=== PATIENT | female | born 1940 | race Caucasian/White ===

== ENCOUNTER 2018-07-07 14:31 | Outpatient (REF) | payer SELFPAY ==
[2018-07-07 14:50] VITALS: BP 109/71; PULSE 71; RESP 14; TEMP 36.6; O2SAT 95
--- NOTE | 2018-07-07 15:11 | DI.REPORT_ITS ---
SYMPTOM/DIAGNOSIS: SWALLOWED DENTAL DEVICE SOFT TISSUE LATERAL NECK: No foreign body is identified in the annemarie or hypopharynx or larynx or trachea. PA CHEST: The chest is unremarkable with no evidence of a foreign body. There is no infiltrate or pleural effusion. The heart is not enlarged. Unfolding and mild ectasia of the thoracic aorta is seen. ABDOMEN: There is no evidence of a radiopaque foreign body in the GI tract.
--- NOTE | 2018-07-07 15:52 | ED.GENADUL_ITS ---
Disposition Clinical Impression: Swallowed foreign body Disposition: HOME Condition: Good Instructions: Foreign Body Ingestion (ED) Additional Instructions: If you notice any worsening of your symptoms, or any new symptoms such as vomiting, diarrhea, fever, chills, shortness of breath, chest pain, numbness, weakness, or fainting , please return immediately to the emergency department for reevaluation. Please follow up with your primary care provider as soon as possible for reassessment and reevaluation. As always, it was a pleasure participating in your medical care today. Medical Decision Making - Medical Decision Making This is a 78-year-old female who presents after being told by the dentist office that she may have lost the tooth or a part of their dental apparatus in the back of her throat. They recommended she come into the ER for an x-ray. Patient denies any complaints and states that she did not feel anything in her throat or neck. She denies any nausea vomiting diarrhea difficulty breathing or cough. She denies any chest pain. X-rays do not reveal any signs of large metallic body or radiopaque body in the patient's neck. With no signs of airway compromise, coughing, or difficulty swallowing I feel she can be safely discharged home with close follow-up. We discussed red flags which returned patient and family understand. I have extensively reviewed the treatment plan and discharge instructions with the patient. I have addressed all patient concerns at this time. The patient was made aware of what symptoms to monitor for that would warrant a return to the emergency department. Discussed the plan with the patient, they demonstrate verbal understanding and agreement with our assessment and plan at this time. History of Present Illness - General Chief complaint: ThroatFB Stated complaint: XRAY NEEDED Time Seen by Provider: 07/07/18 15:11 - History of Present Illness Initial comments: [id number] female who presents for evaluation of swallowing foreign body. She states that she was having a dental procedure today, when the dental staff felt that they might have lost a piece of their instrument or her tooth while doing the cleaning procedure. The patient denies feeling anything in the back of her throat, having any difficulty swallowing, having any gagging, cough or shortness of breath. She denies any symptoms whatsoever and states that the only reason I am coming in is because they thought something might have happened. The patient has been able to eat and drink since then without any difficulty, shortness of breath, nausea, or vomiting. She has no complaints whatsoever at this time. She denies any previous throat or chest surgeries. She denies any blood thinner use. She denies any IV or illicit drug use. She denies any pertinent family history. - Related Data Donepezil [Aricept] 10 mg PO HS 07/07/18 Memantine HCl [Namenda Xr] 28 mg PO DAILY 07/07/18 Sertraline [Zoloft] 50 mg PO DAILY 07/07/18 Allergies Allergy/AdvReac Type Severity Reaction Status Date / Time amoxicillin Allergy Unverified 07/07/18 14:56 Review of Systems Other: 10 point review of systems was performed, pertinent positives and negatives are noted in the history of present illness. General Exam - Other Other exam information: 1.Const: Well-nourished, Well-developed, appearing stated age 2.Eyes: PERRL, no conjunctival injection, and symmetrical lids. 3.ENT: Atraumatic external nose and ears. Moist MM. Neck: Symmetric, trachea midline, No thyromegaly. 4.CVS: +S1/S2, No murmurs or gallops. Peripheral pulses 2+ and equal in all extremities. Brisk capillary refill in all extremities. 5.RESP: Unlabored respiratory effort. Clear to auscultation bilaterally. No wheezes rales or rhonchi 6.GI: Soft, Nontender/Nondistended, No hepatosplenomegaly. No guarding or rebound. 7.MSK: Normocephalic/Atraumatic, Extremities w/o deformity or ttp No cyanosis or clubbing, Normal movement of all extremities 8.Skin: Warm, Dry. No rashes or lesions. 9.Neuro: drosophere operator II-XII grossly intact. Sensation grossly intact, no focal neurologic deficits. 10.Psych: (AAO) x3. Appropriate mood and affect Course Vital Signs - 24 hr 07/07/18 14:50 Temperature 36.6 C Pulse 71 Respiratory 14 Rate Blood Pressure 109/71 Pulse Oximetry 95
== END 2018-07-07 16:02 | disposition home or self-care (01) ==
LOC: ER 14:31
PROVIDERS: Visit Provider Student in an Organized Health Care Education/Training Program
DX: T18.9XXA Foreign body of alimentary tract, part unspecified, initial encounter (principal); Y92.531 Health care provider office as the place of occurrence of the external cause

== ENCOUNTER 2022-07-20 12:37 | Emergency (ER) | payer MEDICARE, BC, SELFPAY ==
[2022-07-20] VITALS (31 sets, daily range): BP systolic 89–136; BP diastolic 54–93; PULSE 63–76; RESP 10–23; TEMP 36.5; O2SAT 90–98
--- NOTE | 2022-07-20 12:30 | RT.EKG_ITS ---
APPROVED REPORT Exam: Resting ECG Reason for Exam: SYNCOPY Patient Location: E HR:71 bpm ECG Measurements Heart Rate 71 AXIS OR 172 P 20 QRSd 81 QRS 15 QT 401 T 9 QTc 435 Conclusion Sinus rhythm...normal P axis, V-rate 60- 99. Sinus. No STEMI. I have reviewed and interpreted ECG and agree with software generated interpretation.
--- NOTE | 2022-07-20 12:41 | W.ED.GENAD ---
Discharge Plan Disposition Patient Disposition: HOME Condition: Stable Discharge Details Clinical Impression: Episode of generalized weakness, Anemia Primary Care Provider: [facility],Local ED Provider: Charlette Bynum Home Meds and New Rx's Prescriptions: Continued clindamycin HCl 150 mg capsule 150 mg PO DAILY omeprazole 40 mg capsule,delayed release(DR/EC) 40 mg PO DAILY calcium carbonate-vitamin D3 [Oyster Shell Calcium-Vit D3] 500 mg-10 mcg (400 unit) tablet donepezil 10 MG tablet 10 mg PO HS sertraline 50 MG tablet 50 mg PO DAILY memantine [Namenda XR] 28 MG capsule,sprinkle,ER 24hr 28 mg PO DAILY Discharge Instructions Instructions: Weakness (ED), Anemia (ED) Additional Instructions: Your mother's lab work today revealed that she is anemic (low hemoglobin). Drink plenty of fluids and get plenty of rest. As you declined a CT scan of the head, chest x-ray, urinalysis and additional work-up of anemia, this may lead to missed or incomplete diagnoses. Your mother's presentation today does not appear consistent with seizures but it is recommended to call your mother's neurologist Dr. Watts tomorrow for further recommendations regarding possible seizures and medication management. Follow-up with the primary care doctor in 1 week. Return to the emergency department with any worsening or new concerning symptoms. Referrals: Nithin Watts [ NON-[facility] STAFF PHYSICIAN] - Discharge Data Discharge Date/Time-TO BE ENTERED AT DEPARTURE: 07/20/22 16:30 Discharge Physician: Charlette Bynum Medical Decision Making 82-year-old female with a history of Alzheimer's dementia and seizure disorder currently not on any anticonvulsant medication presents for an episode of generalized weakness while ambulating this morning. Denies any seizure-like activity. Daughter reports that patient was supposed to be started on Keppra per Dr. Calderón last month but has not yet been started. She also states she should not be taking either Namenda or donepezil but has been on both of these medications. Patient appears well and in no acute distress. No obvious focal deficits on exam but unable to perform full neurological exam due to her dementia and full cooperation. She appears nontoxic and no meningeal signs. Her blood pressure is mildly soft with a systolic between 90s and 100s. Consider dehydration. Differential diagnosis also includes electrolyte abnormality, seizure, UTI, arrhythmia. History and presentation does not appear consistent with PE, meningitis or CVA but considering her age and history, will obtain screening labs, CT head, chest x-ray, urinalysis and give fluids and reassess. We will also contact Dr. Calderón service for medication recommendations. Labs reviewed. Hemoglobin 8.7. Unsure of her baseline hemoglobin. Nursing attempted to obtain urinary cath sample but bladder emptied twice and daughter is refusing any further attempts. A CT head and chest x-ray were ordered but daughter is declining these tests. Attempted to contact Dr. Watts or someone covering and there is no one available. Daughter is declining consult with [facility] neurology. Daughter would like to take patient home. Discussed that I do not see an indication for blood transfusion and history of presentation does not appear consistent with seizure or stroke. Daughter feels comfortable taking patient home and will follow up with Dr. Watts this week. Advised to follow up with the primary care doctor for re-evaluation. Usual and customary return precautions given prior to discharge. Lab Data Lab results reviewed: Yes I reviewed the patient's lab results. Labs: Laboratory Tests Range/Units 07/20/22 07/20/22 12:55 12:55 WBC (4.4-10.8) 10^3/uL 5.72 RBC (3.93-5.22) 10^6/uL 3.92 L Hgb (11.2-15.7) g/dL 8.7 L Hct (36.0-46.0) % 30.2 L MCV (80-95) fL 77 L MCH (27.0-33.0) pg 22.2 L MCHC (32.0-36.0) % 28.8 L RDW (11.7-14.6) % 15.0 H Plt Count (130-400) 10^3/uL 199 MPV (8.0-11.0) fL 10.9 Immature Gran % 0.3 Neutrophils % 69.8 Lymphocytes % 18.4 Monocytes % 7.7 Eosinophils % 3.5 Basophils % 0.3 Nucleated RBC % (0.0-0.3) % 0.0 Absolute Neutrophils (1.2-6.7) 10^3/uL 3.99 Absolute Lymphocytes (1.2-3.4) 10^3/uL 1.05 L Absolute Monocytes (0.1-0.8) 10^3/uL 0.44 Absolute Eosinophils (0.0-0.7) 10^3/uL 0.20 Absolute Basophils (0.0-0.2) 10^3/uL 0.02 RBC Morphology See Below Hypochromasia 2+ Poikilocytosis 1+ Sodium (136-145) mmol/L 143 Potassium (3.5-5.1) mmol/L 3.7 Chloride (98-107) mmol/L 109 H Carbon Dioxide (21.0-32.0) mmol/L 25.8 Anion Gap (3-11) mmol/L 8.2 BUN (7-18) mg/dL 27 H Creatinine (0.55-1.02) mg/dL 0.9 Estimated GFR/1.73 m2 (mL/min/1.73m2) >= 60.00 Glucose (74-106) mg/dL 114 H Calcium (8.5-10.1) mg/dL 8.4 L Magnesium (1.8-2.4) mg/dL 1.9 Total Bilirubin (0.2-1.0) mg/dL 0.5 AST (15-37) U/L 11 L ALT (14-59) U/L 17 Alkaline Phosphatase (46-116) U/L 50 Troponin I (<or=60) ng/L < 50 Total Protein (6.4-8.2) g/dL 6.6 Albumin (3.4-5.0) g/dL 3.2 L HPI General Mode of arrival: EMS. Date/Time Provider Initiated Documentation: 07/20/22 12:39. Limitations to Documentation: altered mental status. Information obtained by: patient and family. HPI Narrative: Patient is an 82-year-old female with a history of Alzheimer's dementia and seizures presents from home for a possible seizure versus syncopal episode. Family initially refused transfer on scene and then decided to come to the ED for evaluation. Daughter who was at bedside states that patient is staying with her for the weekend but resides in an assisted living facility due to her dementia. Daughter states that she was ambulating with patient who was using her walker when she suddenly stopped walking and appeared very weak. She states she did not pass out but appeared too weak to walk and they lowered her to the ground. She denies any injury or trauma or fall. Daughter states that patient was her normal self yesterday and earlier this morning but has not yet eaten or taken her medications yet this morning. Daughter states that patient was admitted to [facility] last month and diagnosed with new onset seizures. She states she was given Keppra at that time but was sensitive to 1000 mg and the dose was attempting to be adjusted. Daughter states that patient did not appear to have any seizure-like activity today. Daughter also states that Dr. Roselia Crocker evaluated patient last month for her seizures and it had been recommended at that time to stop either her Namenda or donepezil and she states she has been taking both. Related Data Home Medications Medication Instructions Recorded Confirmed donepezil 10 mg tablet 10 mg PO HS 07/07/18 07/20/22 memantine 28 mg capsule 28 mg PO DAILY 07/07/18 07/20/22 sprinkle,extended release 24hr (Namenda XR) sertraline 50 mg tablet 50 mg PO DAILY 07/07/18 07/20/22 calcium carbonate 500 mg-vitamin tab 07/20/22 07/20/22 D3 10 mcg (400 unit) tablet (Oyster Shell Calcium-Vitamin D3) clindamycin HCl 150 mg capsule 150 mg PO DAILY 07/20/22 07/20/22 omeprazole 40 mg capsule,delayed 40 mg PO DAILY 07/20/22 07/20/22 release Allergies Allergy/AdvReac Type Severity Reaction Status Date / Time amoxicillin Allergy Unverified 07/20/22 12:48 General Stated Complaint: Dizzy/Sync RONY: 3 Review of Systems All systems reviewed & are unremarkable except as noted in HPI and below Constitutional Constitutional: Denies chills, Denies excessive sweating, Denies fatigue, Denies fever(s), Denies weakness and Denies weight loss Eyes Eyes: Reports system reviewed and no additional complaints, except as documented and Denies blurry vision ENT Ears, Nose, Mouth, and Throat: Denies vertigo, Denies dizziness, Denies otalgia, Denies nasal congestion, Denies sore throat and Denies throat swelling Cardiovascular Cardiovascular: Denies chest pain, Denies syncope, Denies rapid heart rate and Denies dyspnea Respiratory Respiratory: Denies chest congestion, Denies cough, Denies pain on inspiration and Denies dyspnea Gastrointestinal Gastrointestinal: Denies abdominal pain, Denies diarrhea and Denies vomiting Genitourinary Genitourinary: Denies hematuria, Denies dysuria and Denies flank pain Musculoskeletal Musculoskeletal: Denies back pain and Denies joint swelling Integumentary/Breasts Skin/Breast: Denies lesions and Denies rash Neurologic Neurologic: Denies behavioral changes, Denies confusion, Denies vertigo, Denies dizziness, Denies syncope, Denies localized weakness and Denies weakness Psychiatric Psychiatric: Denies behavioral changes, Denies confusion and Denies depression Endocrine Endocrine: Denies excessive sweating and Denies fatigue Hematologic/Lymphatic Hematologic/Lymphatic: Denies easy bruising and Denies lymphadenopathy Allergic/Immunologic Allergic/Immunologic: Denies throat swelling PFSH All Active Problems (Updated 07/20/22 @ 16:14 by Charlette Bynum DO) Episode of generalized weakness (Acute) Anemia (Chronic) Medical History (Updated 07/20/22 @ 16:14 by Charlette Bynum DO) Alzheimer's dementia Seizure Surgical History (Updated 07/20/22 @ 13:01 by Charlette Bynum DO) History of knee surgery Social History Smoking/Tobacco Use Status: Never Smoking risk assessment performed?: Yes Alcohol Intake: never Drug use: Never Substance use type: does not use Do you feel safe in your relationship?: Yes Exam Const General: cooperative and no acute distress Orientation: alert and awake HENMT Head: normal to inspection Ears: hearing grossly normal bilaterally, external ears normal and TM's normal bilaterally General nose exam: external nose normal Face and sinus: normal facial exam Mouth: oral mucosae normal Teeth and gingiva: dentition normal Throat: posterior oropharynx normal Eyes General: appearance normal, both eyes and all related structures Eyelids: eyelids normal Pupils: PERRL EOM: EOM intact bilaterally Neck Neck: normal visual inspection Lymphatic: no lymphadenopathy noted Chest Chest: normal inspection of the chest Resp Effort & Inspection: normal respiratory effort and able to speak in complete sentences Auscultation: clear to auscultation bilaterally Cardio Rate: regular rate Rhythm: regular rhythm GI Inspection: normal to inspection Palpation: soft, not firm, no guarding, no hepatosplenomegaly, no masses and nontender Auscultation: normal bowel sounds Skin General skin exam: no rashes or lesions noted Neuro General: patient alert, patient awake, moves all extremities and no meningeal signs Cognition: abnormal cognition (abnormal at baseline due to dementia) Speech: speech normal Motor: muscle tone normal throughout Sensory Exam: no sensory deficits noted Extrem General: normal to inspection, full ROM and capillary refill normal Psych Appearance: grossly normal Mental Status: mental status grossly normal Speech and Movement: speech and movement normal Affect: normal affect Thought Process: normal
[2022-07-20] MEDS: Normal Saline 1,000 ML 1000 ML IV (13:11)
[2022-07-20 13:12] LABS: Abs Immature Grans 0.02 10^3/uL (0.0-0.06); Absolute Basophil Count 0.02 10^3/uL (0.0-0.2); Absolute Lymphocyte Count 1.05 10^3/uL (1.2-3.4); Absolute Monocyte Count 0.44 10^3/uL (0.1-0.8); Absolute Neutrophil Count 3.99 10^3/uL (1.2-6.7); Basophils % 0.3; Eosinophils % 3.5; HCT 30.2 % (36.0-46.0); HGB 8.7 g/dL (11.2-15.7); Immature Grans % 0.3; Lymphocytes % 18.4; MCH 22.2 pg (27.0-33.0); MCHC 28.8 % (32.0-36.0); MCV 77 fL (80-95); MPV 10.9 fL (8.0-11.0); Monocytes % 7.7; Neutrophils % 69.8; Platelet Count 199 10^3/uL (130-400); RBC 3.92 10^6/uL (3.93-5.22); RDW-SD 41.8 fL; WBC 5.72 10^3/uL (4.4-10.8)
[2022-07-20 13:31] LABS: ALT 17 U/L (14-59); AST 11 U/L (15-37); Albumin 3.2 g/dL (3.4-5.0); Alkaline Phosphatase 50 U/L (46-116); Anion Gap 8.2 mmol/L (3-11); BUN 27 mg/dL (7-18); Bilirubin, Total 0.5 mg/dL (0.2-1.0); CO2 25.8 mmol/L (21.0-32.0); CREATININE 0.9 mg/dL (0.55-1.02); Calcium 8.4 mg/dL (8.5-10.1); Chloride 109 mmol/L (98-107); Glucose 114 mg/dL (74-106); Magnesium 1.9 mg/dL (1.8-2.4); Potassium 3.7 mmol/L (3.5-5.1); Sodium 143 mmol/L (136-145); Total Protein 6.6 g/dL (6.4-8.2); Troponin I < 50 ng/L (<or=60)
[2022-07-20 13:40] LABS: Diff Comment Diff Reviewed; Hypochromasia 2+
[2022-07-20 13:41] LABS: Poikilocytes 1+
--- NOTE | 2022-07-20 14:24 | NUR.NOTE ---
Multiple attempts with straight catheter with no success, daughter refusing additional attempts. Pt.'s daughter also is refusing CT scan and x-rays due to effect last time on the patient and she states that patient did not fall so therefore doesn't feel she needs the tests.Nursing Note:
== END 2022-07-20 16:30 | disposition home or self-care (01) ==
PROVIDERS: Emergency Provider Physician Assistant
DX: D64.9 Anemia, unspecified (principal); F03.90 Unspecified dementia, unspecified severity, without behavioral disturbance, psychotic disturbance, mood disturbance, and anxiety
CPT/HCPCS: 36415; 80053; 93005; 96360; 99284; 81003; 83735; 84484; 85025; 93010